=== PATIENT | female | born 1945 ===

== ENCOUNTER 2018-12-01 10:19 | Outpatient (CLI) | payer OTHER ==
[~2018-12-01] VITALS: Ht 149.9 cm; Wt 65.8 kg
== END 2018-12-01 10:35 | disposition home or self-care (01) ==
LOC: OFIC 805 10:19
DX: H81.10 Benign paroxysmal vertigo, unspecified ear (principal); H91.8X3 Other specified hearing loss, bilateral; H61.21 Impacted cerumen, right ear